=== PATIENT | male | born 1975 | race Caucasian/White ===

== ENCOUNTER 2017-08-06 12:19 | Emergency (ER) | payer OTHER ==
[~2017-08-06] VITALS: Ht 180.3 cm; Wt 88.9 kg
[2017-08-06] MEDS ORDERED: KEPPRA1000 MG (12:37)
[2017-08-06] MEDS ORDERED: LAMICTAL200 M1 (12:38)
[2017-08-06] MEDS ORDERED: SYNTHROID75 MCG (12:38)
[2017-08-06] MEDS ORDERED: NORVASC10 MG (12:38)
[2017-08-06] MEDS ORDERED: LOSARTAN-HCTZ1 EAC2 (12:39)
[2017-08-06] MEDS ORDERED: OSEL75CA PO (16:04)
== END 2017-08-06 16:40 | disposition home or self-care (01) ==
LOC: ER 12:19
DX: J09.X2 Influenza due to identified novel influenza A virus with other respiratory manifestations (principal); R50.9 Fever, unspecified

== ENCOUNTER 2023-02-11 17:55 | Emergency (ER) | payer OTHER ==
[~2023-02-11] VITALS: Ht 177.8 cm; Wt 110.2 kg
[~2023-02-11 17:55] MED LIST: KEPPRA1000 MG; LAMICTAL200 M1; LOSARTAN-HCTZ1 EAC2; NORVASC10 MG; OSEL75CA PO; SYNTHROID75 MCG
== END 2023-02-11 21:31 | disposition home or self-care (01) ==
LOC: ER 17:55
DX: F41.0 Panic disorder [episodic paroxysmal anxiety] (principal); I10 Essential (primary) hypertension; E78.00 Pure hypercholesterolemia, unspecified

== ENCOUNTER 2023-03-02 01:40 | Emergency (ER) | payer OTHER ==
[~2023-03-02] VITALS: Ht 177.8 cm; Wt 109.8 kg
== END 2023-03-02 07:02 | disposition home or self-care (01) ==
LOC: ER
DX: G43.909 Migraine, unspecified, not intractable, without status migrainosus (principal)
CPT/HCPCS: 96372; 99284; J1885; J2765

== ENCOUNTER 2023-07-30 07:58 | Emergency (ER) | payer OTHER ==
[~2023-07-30] VITALS: Ht 177.8 cm; Wt 108.9 kg
[2023-07-30] MEDS ORDERED: NIFEDIPINE20 MG (08:19)
[2023-07-30] MEDS ORDERED: KETOROLAC TROMETHAMINE 30 MG VIAL IM STA (08:49)
[2023-07-30 09:18] LABS: HEMATOCRIT 39.8 % (39.0-48.0); MEAN CELL VOLUME 92.9 fL (80.0-100.00); MEAN CORPUSCULAR HEMOGLOBIN 32.8 pg (27.00-32.0); MEAN CORPUSCULAR HGB CONC 35.3 g/dl (32.0-36.0); PLATELET COUNT 323 K/uL (150-450); RED BLOOD COUNT 4.28 M/uL (4.00-6.00); RED CELL DISTRIBUTION WIDTH 13.2 % (11.5-14.5)
[2023-07-30 10:06] LABS: CALCIUM 9.3 mg/dL (8.5-10.1); CREATININE SERUM 0.9 mg/dL (0.70-1.30); GFR 90.06; POTASSIUM 3.55 mEq/L (3.5-5.1)
== END 2023-07-30 11:00 | disposition home or self-care (01) ==
LOC: ER 07:58
PROVIDERS: General Practice
DX: R07.89 Other chest pain (principal); I10 Essential (primary) hypertension; E03.9 Hypothyroidism, unspecified; G40.802 Other epilepsy, not intractable, without status epilepticus
CPT/HCPCS: 36415; 96372; 99282; J1885

== ENCOUNTER → 2023-08-22 | Emergency (ER) | payer OTHER ==
[~2023-08-22] VITALS: Ht 177.8 cm; Wt 108.9 kg
[~2023-08-22] MED LIST changes: +BUPIVACAINE HCL/PF 0.5% 30ML ML ONE; +LIDOCAINE HCL/EPINEPHRINE 10MG/ML 1% 50ML IJ ONE; +NIFEDIPINE20 MG; +POVIDONE-IODINE 118 ML BOTT TOP ONE
== END | disposition left against medical advice (07) ==
LOC: ER 22:26
DX: Z53.21 Procedure and treatment not carried out due to patient leaving prior to being seen by health care provider (principal)

== ENCOUNTER 2024-09-06 06:51 | Day surgery (SDC) | payer OTHER ==
[~2024-09-06 06:51] MED LIST changes: -BUPIVACAINE HCL/PF 0.5% 30ML ML ONE; -KEPPRA1000 MG; +KEPPRA1000 MG PO; -LIDOCAINE HCL/EPINEPHRINE 10MG/ML 1% 50ML IJ ONE; -NIFEDIPINE20 MG; +NIFEDIPINE20 MG PO; -POVIDONE-IODINE 118 ML BOTT TOP ONE; -SYNTHROID75 MCG; +SYNTHROID75 MCG PO; +UROXATRAL10 MG PO
[2024-09-06] MEDS ORDERED: MIDAZOLAM HCL 2 MG/2 ML VIAL IV ONE (12:15)
[2024-09-06] MEDS ORDERED: fentaNYL CITRATE 50 MCG/ML AMPUL IV PUSH ONE (12:15)
[2024-09-06] MEDS ORDERED: DIPHENHYDRAMINE HCL 50 MG/ML VIAL 1ML IV ONE (12:15)
== END 2024-09-06 13:10 | disposition home or self-care (01) ==
LOC: ADM 06:51 → AMB-ENDOS 06:51 → CIR.AMB 07:00 → AMB-ENDOS 13:10
PROVIDERS: ATTEND Internal Medicine
DX: K21.9 Gastro-esophageal reflux disease without esophagitis (principal); K29.00 Acute gastritis without bleeding; R10.13 Epigastric pain